=== PATIENT | male | born 1965 | race Caucasian/White ===

== ENCOUNTER 2022-12-31 21:28 | Emergency (ER) | payer OTHER, SELFPAY ==
[2022-12-31 21:36] VITALS: BP 124/85; PULSE 65; RESP 16; TEMP 36.5; O2SAT 98; BMI 28.5
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
--- NOTE | 2022-12-31 22:53 | XR_ITS ---
The [address] [address] Patient Name: SIMONE VILLAGRAN MRN: [id number] date: 1965 Sex: M Assigned Patient Location: ER Current Patient Location: ER Accession/Order Number: [id number] Exam Date: 12/31/2022 22:53 Report Date: 12/31/2022 23:24 At the request of: TK GALE Procedure: XR foot LT min 3V EXAM: XR foot LT min 3V HISTORY: left foot injury COMPARISON: None. TECHNIQUE: 3 view study FINDINGS: Overall bony architecture is normal. Joint spaces are well-maintained. Small plantar and posterior calcaneal enthesophytes are noted. There is forefoot soft tissue swelling. IMPRESSION: No evidence for acute fracture or dislocation. Electronically authenticated by: [place] PRICE Date: 12/31/2022 23:24
[2022-12-31] MEDS: IBUPROFEN 400 MG TABLET 800 MG PO (23:09)
== END 2022-12-31 23:56 | disposition home or self-care (01) ==
PROVIDERS: Emergency Provider Emergency Medicine
DX: S93.602A Unspecified sprain of left foot, initial encounter (principal); W20.8XXA Other cause of strike by thrown, projected or falling object, initial encounter
CPT/HCPCS: 73630; 99283

== ENCOUNTER 2024-09-29 10:52 | Emergency (ER) | payer SELFPAY ==
[2024-09-29 11:16] VITALS: BP 146/96; PULSE 74; TEMP 37.1; O2SAT 97; BMI 30.1
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
== END 2024-09-29 14:00 | disposition home or self-care (01) ==
PROVIDERS: Emergency Provider Emergency Medicine
DX: S93.601A Unspecified sprain of right foot, initial encounter (principal); W22.01XA Walked into wall, initial encounter
CPT/HCPCS: 73610; 73630; 99283

== ENCOUNTER 2025-06-14 19:50 | Emergency (ER) | payer SELFPAY ==
[2025-06-14] VITALS (16 sets, daily range): BP systolic 115–185; BP diastolic 95–128; PULSE 77; TEMP 37.2; O2SAT 95–96; BMI 29.4
--- NOTE | 2025-06-14 20:22 | ECG_ITS ---
[facility] Test Date: 2025-06-14 Pat Name: SIMONE VILLAGRAN Department: Room: - Gender: Male [employer]: : 1965 Requested By: [id number] Order Number: [id number] Reading MD: DANE SMITH M.D. Measurements Intervals [place] Rate: 75 P: 38 WI: 168 QRS: 21 QRSD: 96 T: 54 QT: 372 QTc: 400 Interpretive Statements 1100 Sinus rhythm 9110 normal ECG No previous ECG available for comparison Electronically Signed On 06-15-2025 21:29:07 EST by DANE SMITH M.D.
--- NOTE | 2025-06-14 20:48 | XR_ITS ---
[place] [id number] Patient Name: SIMONE VILLAGRAN MRN: [id number] date: 1965 Sex: M Assigned Patient Location: ER Current Patient Location: ED.MAIN Accession/Order Number: [id number] Exam Date: 06/14/2025 21:00 Report Date: 06/14/2025 21:37 At the request of: ISMAEL PENNINGTON MD Procedure: XR chest 1V Plain film chest Single view HISTORY: Chest pain COMPARISON: None FINDINGS: SUPPORT DEVICES: None POSTSURGICAL CHANGES: None HEART: Within normal limits PULMONARY [place]ERVA: Within normal limits MEDIASTINUM: Unremarkable LUNGS AND PLEURA: No acute lung process, pleural effusion or pneumothorax identified. Mild right hemidiaphragm elevation BONY STRUCTURES: Intact ADDITIONAL FINDINGS None XR/XR chest 1V IMPRESSION: No acute process. Impression dictated by: Derrick Good M.D. 06/14/2025 9:37 PM [facility]ation [facility] authentic[facility] by: [id number] Y Date: 06/14/2025 21:37
--- NOTE | 2025-06-14 20:49 | ED_ITS ---
HPI - Chest Pain General Chief Complaint: Chest Pain Stated Complaint: BP reading 184/132 home meter Time Seen by Provider: 06/14/25 20:42 Source: patient Mode of arrival: walk-in History of Present Illness HPI narrative: past history of HTN. Normally takes lisinopril, norvasc and HCTZ. loss his insurance and has not had his medications for 3 months. Sergio complained of chest pressure ongoing for a couple of hours and he felt short of breath. Took BP at home and it was elevated and decided to come in. No nausea or weakness Related Data Previous Rx's ?Medication ?Instructions ?Recorded methylprednisolone 4 mg tablets in See Rx Instructions .Route 09/29/24 a dose pack (Medrol (Yoni)) .COMPLEX #21 ea Allergies Allergy/AdvReac Type Severity Reaction Status Date / Time aspirin Allergy Severe Anaphylaxis Verified 09/29/24 11:21 Penicillins Allergy Severe Anaphylaxis Verified 09/29/24 11:19 Review of Systems ROS Status of ROS 10 or more systems reviewed and unremark able except as noted in history and below PFSH PFSH Social History Little interest or pleasure in doing things: not at all Feeling down, depressed, or hopeless: not at all Exam Constitutional Vital Signs, click to edit/add: Last Vital Signs Temp 99.0 F 06/14/25 20:13 Pulse 77 06/14/25 20:13 Resp 12 06/14/25 20:22 BP 143/98 H 06/14/25 22:46 Pulse Ox 95 06/14/25 20:19 O2 Del Method Room Air 06/14/25 20:13 Common normals: no apparent distress, average body habitus, oriented x3, no limitations, healthy appearing, alert and well nourished [facility] Common normals: normocephalic and head/scalp atraumatic Eye Common normals: EOMs intact bilaterally and conjunctivae normal Respiratory Common normals: normal respiratory effort, no retractions, no use of accessory muscles and clear to auscultation bilaterally Cardio Common normals: regular rate, regular rhythm, S1 normal heart sound and S2 normal heart sound GI Common normals: Normal to inspection, nondistended, normoactive bowel sounds present and soft to palpation Extremity Common normals: normal to inspection and full ROM Neuro Common normals: oriented x3, CN's II-XII intact bilaterally, moves all extremities and no focal motor deficits Psych Appearance: grossly normal Course Vital Signs Vital signs: Vital Signs Temperature 99.0 F 06/14/25 20:13 Pulse Rate 77 06/14/25 20:13 Respiratory Rate 18 06/14/25 20:13 Blood Pressure 184/128 H 06/14/25 20:13 Pulse Oximetry 96 06/14/25 20:13 Oxygen Delivery Method Room Air 06/14/25 20:13 Temperature 99.0 F 06/14/25 20:13 Pulse Rate 77 06/14/25 20:13 Respiratory Rate 12 06/14/25 20:22 Blood Pressure 143/98 H 06/14/25 22:46 Pulse Oximetry 95 06/14/25 20:19 Oxygen Delivery Method Room Air 06/14/25 20:13 MDM - Chest Pain MDM Narrative Medical decision making narrative: patient presented with hypertensive urgency and mild chest pressure. Normal EKG and cxray. Serial troponin neg. BP improved after catapres 0.2 and lisinopril. Patient feeling better and relieved now that his BP is down. Discharged home to follow up with his doctor for recheck Lab Data Labs: Lab Results 06/14/25 06/14/25 Range/Units 20:57 22:27 WBC 10.5 (4.0-11.0) 10^3/uL RBC 4.83 (4.70-6.10) 10^6/uL Hgb 15.6 (14.0-18.0) g/dL Hct 46.6 (42.0-54.0) % MCV 96.5 H (80.0-94.0) fL MCH 32.3 (25.9-34.0) pg MCHC 33.5 (29.9-35.2) g/dL RDW 11.8 (11.0-15.0) % Plt Count 332 (150-450) 10^3/uL MPV 9.2 L (9.5-13.5) fL Neut % (Auto) 54.0 (43.0-75.0) % Lymph % (Auto) 31.2 (20.5-60.0) % [place] % (Auto) 10.0 (1.7-12.0) % Eos % (Auto) 3.1 (0.9-7.0) % Baso % (Auto) 1.3 (0.2-2.0) % Neut # (Auto) 5.7 (1.4-6.5) 10^3/uL Lymph # (Auto) 3.3 (1.2-3.8) 10^3/uL [place] # (Auto) 1.1 H (0.3-0.8) 10^3/uL Eos # (Auto) 0.3 (0.0-0.7) 10^3/uL Baso # (Auto) 0.1 (0.0-0.1) 10^3/uL Abs Immat Gran (auto) 0.04 H (0.00-0.03) 10^3/uL Imm/Tot Granulo (auto) 0.4 (0.0-0.5) % Sodium 141 (136-145) mmol/L Potassium 3.4 L (3.5-5.1) mmol/L Chloride 105 (98-107) mmol/L Carbon Dioxide 28.8 (21.0-32.0) mmol/L Anion Gap 10.6 BUN 18.0 (7.0-18.0) mg/dL Creatinine 1.19 (0.70-1.30) mg/dL Est GFR ( Amer) >60 (>=60 mL/min/1.73m^2) Est GFR (Non-Af Amer) >60 (>=60 mL/min/1.73m^2) BUN/Creatinine Ratio 15.1 Glucose 129 H (74-106) mg/dL Calcium 9.5 (8.5-10.1) mg/dL Troponin I High Sens 8.4 8.8 (4.0-76.1) pg/mL Discharge Plan Discharge Chief Complaint: Chest Pain Clinical Impression: Hypertensive urgency, Atypical chest pain Patient Disposition: Home, Self-Care Prescriptions / Home Meds: No Action methylprednisolone [Medrol (Yoni)] 4 mg tablets,dose pack See Rx Instructions .ROUTE .COMPLEX Qty: 21 0RF Rx Instructions: Taper as directed Print Language: Yi Instructions: Hypertensive Crisis (ED) Additional Instructions: follow up with your doctor this week for recheck Referrals: [facility] [Primary Care Provider, Unknown] - 1 week
[2025-06-14] MEDS: LISINOPRIL 10 MG TABLET PO (21:04)
[2025-06-14] MEDS: CLONIDINE HCL 0.1 MG TABLET PO ×2 (21:04→22:33)
[2025-06-14 21:20] LABS: Hematocrit 46.6 % (42.0-54.0); Hemoglobin 15.6 g/dL (14.0-18.0); Immature Granulocytes Abs Auto 0.04 10^3/uL (0.00-0.03); Immature Granulocytes Pct Auto 0.4 % (0.0-0.5); Lymphocytes Absolute Auto 3.3 10^3/uL (1.2-3.8); Mean Corpuscular HGB Conc 33.5 g/dL (29.9-35.2); Mean Corpuscular Hemoglobin 32.3 pg (25.9-34.0); Mean Corpuscular Volume 96.5 fL (80.0-94.0); Platelet Count 332 10^3/uL (150-450); Red Blood Count 4.83 10^6/uL (4.70-6.10); White Blood Count 10.5 10^3/uL (4.0-11.0)
[2025-06-14 21:40] LABS: Anion Gap 10.6; Blood Urea Nitrogen 18.0 mg/dL (7.0-18.0); Calcium 9.5 mg/dL (8.5-10.1); Carbon Dioxide 28.8 mmol/L (21.0-32.0); Chloride 105 mmol/L (98-107); Estimated GFR (African America >60 (>=60 mL/min/1.73m^2); Estimated GFR (Non-African Ame >60 (>=60 mL/min/1.73m^2); Glucose 129 mg/dL (74-106); Potassium 3.4 mmol/L (3.5-5.1); Sodium 141 mmol/L (136-145)
== END 2025-06-14 23:55 | disposition home or self-care (01) ==
PROVIDERS: Emergency Provider Internal Medicine
DX: I16.0 Hypertensive urgency (principal); R07.89 Other chest pain; I10 Essential (primary) hypertension
CPT/HCPCS: 36415; 71045; 80048; 84484; 85025; 93005; 99285